=== PATIENT | female | born 1980 | race Two or more races ===

== ENCOUNTER 2017-12-23 22:02 | Emergency (ER) | payer MEDICAID, OTHER ==
[~2017-12-23] VITALS: Ht 162.6 cm; Wt 98.9 kg
[2017-12-23 22:40] VITALS: BP 154/84
[2017-12-24] MEDS ORDERED: MORPHINE SULFATE 4 MG/ML SYR/VIAL IM ONE (01:30)
[2017-12-24] MEDS ORDERED: ONDANSETRON HCL 4 MG/2 ML VIAL IM ONE (01:30)
== END 2017-12-24 04:50 | disposition home or self-care (01) ==
LOC: ER 22:02
DX: G93.5 Compression of brain (principal); Q04.8 Other specified congenital malformations of brain
CPT/HCPCS: 70450; 81025; 96372; 99285; J2270; J2405

== ENCOUNTER → 2021-11-06 | Emergency (ER) | payer MEDICAID ==
[~2021-11-06] VITALS: Ht 162.6 cm; Wt 103.0 kg
[2021-11-06 18:25] VITALS: BP 135/85
== END | disposition left against medical advice (07) ==
LOC: ER 18:07
DX: R10.9 Unspecified abdominal pain (principal); R19.7 Diarrhea, unspecified; R51.9 Headache, unspecified; Z53.21 Procedure and treatment not carried out due to patient leaving prior to being seen by health care provider